=== PATIENT | male | born 1970 | race Caucasian/White ===

== ENCOUNTER 2020-11-21 10:21 | Outpatient (REF) | payer OTHER, SELFPAY ==
[2020-11-21 11:30] LABS: MANUAL DIFF FLAG NO
[2020-11-21 11:44] LABS: Basophils Absolute Auto 0.1 X10*3/uL (0.0-0.2); Basophils Percent Auto 0.8 % (0-2); Eosinophils Absolute Auto 0.6 X10*3/uL (0.0-0.4); Eosinophils Percent Auto 9.1 % (0-4); Hematocrit 43.9 % (42-52); Hemoglobin 14.2 g/dl (14.0-18.0); Imm Gran Abs Auto 0.02 X10*3/uL (0.00-0.03); Imm Gran Pct Auto 0.3 % (0.0-0.4); Lymphocytes Percent Auto 30.8 % (20-40); Mean Corpuscular HGB Conc 32.3 g/dl (31.0-36.0); Mean Corpuscular Hemoglobin 28.3 pg (27.0-33.0); Mean Corpuscular Volume 87.6 fL (80-98); Mean Platelet Volume 10.1 fL (9.4-12.4); Monocytes Absolute Auto 0.6 X10*3/uL (0.1-1.2); Monocytes Percent Auto 8.5 % (2-11); Neutrophils Absolute Auto 3.3 X10*3/uL (2.0-8.3); Neutrophils Percent Auto 50.5 % (45-73); Platelet Count 282 X10*3/uL (160-400); Red Blood Count 5.01 X10*6/uL (4.60-5.80); Red Cell Distribution Width 13.1 % (11.0-16.0); White Blood Count 6.6 X10*3/uL (4.8-10.8)
[2020-11-21 11:55] LABS: Alanine Aminotransferase 21 U/L (0-40); Albumin Level 4.5 g/dL (3.5-5.0); Alkaline Phosphatase 48 U/L (39-117); Anion Gap 11 (12-20); Aspartate Amino Transferase 18 U/L (5-37); Blood Urea Nitrogen 12 mg/dL (9-16); Calcium 9.7 mg/dL (8.4-10.2); Carbon Dioxide 27 mmol/L (22-29); Chloride 106 mmol/L (96-108); Cholesterol 181 mg/dL; Estimated Glomerular Filt Rate > 60; Glucose Random 86 mg/dL (60-115); HDL Cholesterol 51 mg/dL; LDL Cholesterol Calculated 108 mg/dl; Potassium 4.5 mmol/L (3.3-5.1); Sodium 139 mmol/L (135-145); Total Protein 7.5 g/dL (6.5-8.0); Triglycerides 111 mg/dL
== END 2020-11-21 10:22 | disposition home or self-care (01) ==
LOC: HO.LAB 10:21
PROVIDERS: PCP Internal Medicine; Visit Provider Internal Medicine
DX: Z00.00 Encounter for general adult medical examination without abnormal findings (principal); Z13.31 Encounter for screening for depression; J45.32 Mild persistent asthma with status asthmaticus; J30.89 Other allergic rhinitis
CPT/HCPCS: 36415; 80053; 80061; 85025

== ENCOUNTER → 2021-01-16 13:26 | Outpatient (BNVA) | payer OTHER, SELFPAY | PROVIDERS: PCP Internal Medicine; Visit Provider Internal Medicine | DX: R07.2 Precordial pain (principal) | CPT/HCPCS: 93005 ==

== ENCOUNTER → 2021-02-27 08:36 | Outpatient (REF) | payer OTHER, SELFPAY ==
--- NOTE | 2021-02-27 08:40 | CA_ITS ---
Acquisition Time: 2021-02-27 09:06:30 Total Exercise Time: 00:09:00 Test Indications: Chest Pain Medications: Protocol: LEVAR Max HR: 148 BPM 87% of Pred: 170 BPM Max BP: 150/084 mmHG Max Work Load: 10.1 METS Exercise stress test with exercise 9 min of Levar protocol, with mild sob, no chest discomfort, with isolated PAC, with normotensive response to exercise, without EKG changes meeting criteria for ischemia. Test reviewed with Dr Cade. Referred By: Bo Devine Overread By: CHALO BRUMFIELD
--- NOTE | 2021-02-27 08:40 | CA_ITS ---
Transthoracic Echocardiogram Patient (Last, First, Middle): Jose Gonsalez, Gender: Male Date of : 1970 Age: 50 Procedure Date: 02/27/2021 Procedure Type: Transthoracic Echocardiogram Location: OP Height: 175.26 cm Weight: 97.52 kg BSA: 2.13 m2 Heart Rate: bpm BP: 110 / 50 mmHg Nursing Assistant: VIVIANE Steve MD: Bo Devine MD Offset Press Operator Helper: Iain Cade MD Symptoms: R07.2 - Precordial pain Study Quality: Fair ECG Rhythm: Sinus Conclusions: - Essentially normal study Findings Left Ventricle Normal left ventricular size, thickness, and systolic function. The visually estimated ejection fraction is between 60-65%. Spectral Doppler is indicative of a normal filling pattern. Right Ventricle Normal right ventricular cavity size and systolic function. Atria Both atria are normal in size. There is no evidence of interatrial shunt. Aortic Valve The aortic valve structure and function is likely normal. There is no aortic valve stenosis. There is no aortic valve regurgitation. Mitral Valve Normal mitral valve structure and function. There is trace mitral valve regurgitation. There is no mitral valve stenosis. Pulmonic Valve The pulmonic valve is likely normal. Tricuspid Valve Normal tricuspid valve structure. There is trace tricuspid valve regurgitation. Great Vessels All visible segments of the aorta are normal in size. The pulmonary artery was not well visualized. Venous The inferior vena cava is normal in size and collapses greater than 50% with inspiration. Pericardium/Pleural There is no evidence of pericardial effusion. Prior Study Comparison No significant change compared to prior study dated: 09/23/2017. Measurements 2D Linear Measurements IVSd: 0.99 0.6-0.9/0.6-1.0 cm LVIDd: 4.83 3.9-5.3/4.2-5.9 cm LVIDd Index: 2.27 2.4-3.2/2.2-3.1 cm/m2 LVIDs: 3.09 2.0-3.6 cm LVPWd: 0.73 0.7-1.1 cm Ao Root: 3.60 2.1-3.5 cm LA Diam: 3.50 2.7-3.8/3.0-4.0 cm LAIDs Index: 1.64 1.5-2.3 cm/m2 LV Mass: 174.40 67-162/88-224 g LV Mass Index: 81.88 43-95/49-115 g/m2 LVOT Diam: 2.00 3.0+(-)1.3 cm 2D Systolic Function EF 4C: 63.40 >55% EF 2C: 71.60 >55% EF BiP: 65.00 >55% Mitral Valve MV Pk E: 0.87 MV PK A: 0.52 MV Decel Time: 250.00 E/A: 1.70 E'Lateral: 13.40 E'Medial: 10.10 E/E' Med: 8.60 E/E' Lat: 6.50 PHT: 73.00 MVA PHT: 3.01 Decel George: 3.48 Aortic Valve AoV Pk Joe: 1.29 AoV Mn Joe: 0.90 AoV VTI: 0.30 AoV Pk Grad: 7.00 Aov Mn Grad: 4.00 OSVALDO Cont.VTI: 2.86 LVOT LVOT Pk Joe: 1.17 LVOT Mn Joe: 0.81 LVOT VTI: 0.27 LVOT Pk Grad: 5.00 LVOT Mn Grad: 3.00 LVOT Diam: 2.00 LVOT Area: 3.14 Diastolic Function MV Pk E: 0.87 MV Pk A: 0.52 E/A: 1.70 E'Medial: 10.10 E/E' Med: 8.60 E' Laterial: 13.40 E/E' Lat: 6.50 Right Ventricle TAPSE (mm): 2.21 Tricuspid Valve TR Pk Joe: 1.56 TR Pk Grad: 10.00 RA Press: 3.00 RVSP: 13.00 Great Vessels Aorta Ao Root-2D: 3.60 2.0-3.7 cm Ao Asc: 3.30 2.1-3.4 cm Ao Arch: 2.80 Updated in Other Vendor System with Status of Final Iain Cade MD electronically signed on 02/28/2021 12:41:16 PM with status of Final
== END ==
LOC: HO.CARD 08:36
PROVIDERS: PCP Internal Medicine; Visit Provider Internal Medicine
DX: R07.2 Precordial pain (principal)
CPT/HCPCS: 93017; 93306

== ENCOUNTER 2024-04-04 10:49 | Outpatient (REF) | payer OTHER, SELFPAY ==
[2024-04-04 11:21] LABS: MANUAL DIFF FLAG NO
[2024-04-04 12:03] LABS: Basophils Percent Auto 0.2 % (0-2); Eosinophils Absolute Auto 0.2 X10*3/uL (0.0-0.4); Eosinophils Percent Auto 3.6 % (0-4); Hematocrit 41.7 % (42.0-52.0); Hemoglobin 13.8 g/dl (14.0-18.0); Imm Gran Abs Auto 0.03 X10*3/uL (0.00-0.03); Imm Gran Pct Auto 0.6 % (0.0-0.4); Lymphocytes Absolute Auto 1.8 X10*3/uL (1.2-4.9); Mean Corpuscular HGB Conc 33.1 g/dl (31.0-36.0); Mean Corpuscular Hemoglobin 29.1 pg (27.0-33.0); Mean Corpuscular Volume 87.8 fL (80.0-98.0); Mean Platelet Volume 9.8 fL (9.4-12.4); Monocytes Absolute Auto 0.4 X10*3/uL (0.1-1.2); Monocytes Percent Auto 8.2 % (2-11); Neutrophils Absolute Auto 2.7 x10*3/uL (2.0-8.3); Neutrophils Percent Auto 52.4 % (45-73); Platelet Count 254 X10*3/uL (160-400); Red Blood Count 4.75 X10*6/uL (4.60-5.80); Red Cell Distribution Width 13.2 % (11.0-16.0); White Blood Count 5.2 X10*3/uL (4.8-10.8)
[2024-04-04 12:41] LABS: Alanine Aminotransferase 14 U/L (0-40); Albumin Level 4.3 g/dL (3.5-5.0); Alkaline Phosphatase 41 U/L (39-117); Anion Gap 8 (12-20); Aspartate Amino Transferase 16 U/L (5-37); Bilirubin Total 0.6 mg/dL (0.0-1.0); Blood Urea Nitrogen 16 mg/dL (9-16); Calcium 9.9 mg/dL (8.4-10.2); Carbon Dioxide 28 mmol/L (22-29); Chloride 107 mmol/L (96-108); Cholesterol 195 mg/dL (<200); Estimated Glomerular Filt Rate > 60; Glucose Random 90 mg/dL (60-115); HDL Cholesterol 59 mg/dL (>40); LDL Cholesterol Calculated 114 mg/dL (<100); Potassium 4.5 mmol/L (3.3-5.1); Sodium 138 mmol/L (135-145); Total Protein 7.4 g/dL (6.5-8.0); Triglycerides 110 mg/dL (<150)
[2024-04-04 13:02] LABS: Prostate Specific Antigen 0.12 ng/mL (<0.05-4.0)
== END 2024-04-04 10:50 | disposition home or self-care (01) ==
LOC: HO.LAB 10:49
PROVIDERS: PCP Internal Medicine; Visit Provider Internal Medicine
DX: Z00.00 Encounter for general adult medical examination without abnormal findings (principal); M51.16 Intervertebral disc disorders with radiculopathy, lumbar region; Z12.5 Encounter for screening for malignant neoplasm of prostate; Z98.84 Bariatric surgery status
CPT/HCPCS: 36415; 80053; 80061; 84153; 85025

== ENCOUNTER 2024-11-15 07:12 | Day surgery (SDC) | payer OTHER, SELFPAY ==
--- OUTSIDE RECORDS SUMMARY | 2024-10-19 09:07 | XMS_ITS ---
Author Organization [facility] Address [address] [place] [address] Care Team Providers Care Director Advertising Name Role Phone Angelica Gan Primary Care Provider UnavailJacky Morales Unavailable [phone] Allergies No Known Allergies REASON FOR VISIT PATIENT PRESENTS TODAY FOR SCREENING COLON Social History Tobacco Use: Social History Observation Description Date Details (start date - stop date) Never Smoker NA - NA Tobacco Use/Smoking Question Answer Notes Patient is a nonsmoker Alcohol Screen Question Answer Notes Did you have a drink contain ing alcohol in the past year? Yes How often did you have a dri nk containing alcohol in the past year? Monthly or less (1 point) How many drinks did you have on a typical day when you were drinking in the past year? 1 or 2 drinks (0 point) How often did you have 6 or more drinks on one occasion in the past year? Never (0 point) Points 1 Interpretation Negative Section Notes: OCCASIONAL BEER, NONSMOKER Problems Problem Type SNOMED Code ICD Code Onset Dates Problem Status W/U Status Risk Notes Problem Colon cancer screening (891701998) Colon cancer screening (Z12.11) Active confirmed Problem Pre-procedure evaluation check (431786374) Encounter for other preprocedural examination (Z01.818) Active confirmed Vital Signs Blood pressure systolic 111 mm Hg 08/15/19 25 Blood pressure diastolic 11 mm Hg 025 Height 5 ft 9 in in 08/15/2024 Weight 224 lbs 08/15/2024 BMI 33.08 kg/m2 08/15/2024 Encounters Encounter Location Date Provider Diagnosis [facility] [address] [place] [address] 08/15/2024 Jacky Manzaon Colon cancer screeni ng Z12.11 and Encounter for other preprocedural examination Z01.818 Assessments Encounter Date Diagnosis (ICD Code) Assessment Notes Treatment Notes Treatment Clinical Notes Section Notes 08/15/2024 Colon cancer screening (ICD-10 - Z12.11) Overall, Patricia appears quite well. I did recommend a colonoscopy for screening purposes given his age, good clinical appearance, and his last reported colonoscopy being about 10 years ago. We did review the rationale for this regard to colon cancer prevention. Full consent was obtained for this, including risks of bleeding and perforation. The procedure will be done with monitored anesthesia care. Jb was comfortable with this plan. Thank you again for allowing me to participate in Patricia's care. I shall continue to keep you advised of his progress. 08/15/2024 Encounter for other preprocedural examination (ICD-10 - Z01.818) Overall, Patricia appears quite well. I did recommend a colonoscopy for screening purposes given his age, good clinical appearance, and his last reported colonoscopy being about 10 years ago. We did review the rationale for this regard to colon cancer prevention. Full consent was obtained for this, including risks of bleeding and perforation. The procedure will be done with monitored anesthesia care. Jb was comfortable with this plan. Thank you again for allowing me to participate in Felicitas care. I shall continue to keep you advised of his progress. Plan Of Treatment Future Test Test Name Order Date COLONOSCOPY 08/15/2024 Next Appt Details Follow Up: prn, Reason: Provider Name:Jacky Manzano , 11/15/2024 11:40:00 AM, [address] [place] [address], [id number], Progress Notes * DEBBIE MOORESDOB:1970 ( 54 yo M)Acc No.[id number]:08/15/2024 Progress Notes Patient:?PATRICIA MOORE Provider:?Jacky Manzano MD :1970???Age:54 Y???Sex:Male Marcelino e:08/15/2024 Address:[address] [place] [address] [id number] Pcp:Angelica Gan Subjective: * Chief Complaints: * ???PATIENT PRESENTS TODAY FO R SCREENING COLON * HPI: ???incontinence:? I saw Patricia in the office today for evaluation of colorectal cancer screening. ?As you know, Patricia is a 54-year-old male who presently feels well. He enjoys a good appetite and denies any significant heartburn or dysphagia. He denies any abdominal pain, jaundice, nor any unintentional weight loss. He reports his bowel movements have been regular and without any signs of bleeding. He denies any known family history of colon cancer. ?He describes a possible colonoscopy in his mid-40s that he thinks was negative, although is not very clear on the details. ?In March of 2024 he had a normal liver profile and CBC. * ROS:?General/Constitutional:?Change in appetite?denies.?Chills?denies.?Fatigue?denies.?Ophthalmologic:?Comments?all negative.?ENT:?Comments?all negative.?Respiratory:?hemoptysis?denies.?Cough?denies.?Cardiovascular:?Chest pain?denies.?Orthopnea?denies.?Gastrointestinal:?Comments?See HPI for details.?Genitourinary:?Hematuria?denies.?Dysuria?denies.?Musculoskeletal:?Painful joints?denies.?Weakness?denies.?Skin:?Itching?denies.?Rash?denies.?Neurologic:?Headache?denies.?Seizures?denies.?Psychiatric:?Comments?all negative.? * Medical History:? * Surgical History:?Cholecyste ctomy * Hospitalization/Major Diagno stic Procedure:?No Hospitalization History. * Family History:?Father: kristyn bonilla?Mother: alive.? NO KNOWN COLON CA. * Social History:?Tobacco Use:?Tobacco Use/Smoking?Patient is a?nonsmoker.?Drugs/Alcohol:?Alcohol Screen?Did you have a drink containing alcohol in the past year??Yes,?How often did you have a drink containing alcohol in the past year??Monthly or less (1 point), How many drinks did you have on a typical day when you were drinking in the past year??1 or 2 drinks (0 point),?How often did you have 6 or more drinks on one occasion in the past year??Never (0 point),?Points?1,?Interpretation?Negative.?Miscellaneous:?Marital status: . 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 * Medications:? * Allergies:?N.K.D.A.yes[Aller gies Verified] Objective: * Vitals:?Wt:224 lbs, Ht: 5 ft 9 in, BMI:33.08 Index, BP:111/11 mm Hg, Ht-cm: 175.26, Wt-k.6. * Examination: ???General Examination: ?GENERAL APPEARANCE:?pleasant, well nourished, well developed, in no acute distress.?EYES:?sclera non-icteric.?ORAL CAVITY:?mucosa moist.?NECK/THYROID:?no cervical lymphadenopathy, neck supple.?SKIN:?nonjaundiced, no spider angiomata.?HEART:?S1, S2 normal.?LUNGS:?clear to auscultation bilaterally.?ABDOMEN:?normal bowel sounds, no guarding or rigidity, no guarding or rigidity, no masses palpable, soft, nontender, nondistended.?EXTREMITIES:?no edema.?NEUROLOGIC:?alert and oriented.? Assessment: * Assessment: 1.?Encounter for other prepr ocedural examination - Z01.818 (Primary)?2.?Colon cancer screening - Z12.11? Overall, Patricia appears quite well. I did recommend a colonoscopy for screening purposes given his age, good clinical appearance, and his last reported colonoscopy being about 10 years ago. We did review the rationale for this regard to colon cancer prevention. Full consent was obtained for this, including risks of bleeding and perforation. The procedure will be done with monitored anesthesia care. Jb was comfortable with this plan. Thank you again for allowing me to participate in Patricia's care. I shall continue to keep you advised of his progress. Plan: * Treatment: * Procedure Codes:?3017F COLOR ECTAL CA SCREEN DOC [id number] TOBACCO [id number] BP SCR NOT PRFRM REC REASON NOS * Preventive Medicine:? ??Counseling:?Care goal follow-up plan:?Above Normal BMI Follow-up?Giving encouragement to exercise.? * Follow Up:?prn * * Sign off status: Completed true * Provider:?Jacky Manzano MD Date:? 025 Generated for Amy de leon/Sandeep/Nancyitting on:?10/19/2024 09:07 AM EDT History and Physical Notes * HPI (History of Present Illness) Category Sub-Category Detail Notes Category Not es incontinence I saw Patricia in the office today for evaluation of colorectal cancer screening. As you know, Patricia is a 54-year-old male who presently feels well. He enjoys a good appetite and denies any significant heartburn or dysphagia. He denies any abdominal pain, jaundice, nor any unintentional weight loss. He reports his bowel movements have been regular and without any signs of bleeding. He denies any known family history of colon cancer. He describes a possible colonoscopy in his mid-40s that he thinks was negative, although is not very clear on the details. In March of 2024 he had a normal liver profile and CBC. Examination Category Sub-Category Detail Notes Category Not es General Examination GENERAL APPEARANCE: pleasant , well nourished, well developed, in no acute distress HEAD: EYES: sclera non-icteric EARS: NOSE: THROAT: NECK/THYROID: no cervical lymphade nopathy, neck supple HEART: S1, S2 normal CHEST: LUNGS: clear to auscultatio n bilaterally ABDOMEN: normal bowel sounds, no guarding or rigidity, no guarding or rigidity, no masses palpable, soft, nontender, nondistended NEUROLOGIC: alert and oriented SKIN: nonjaundiced, no spi mali angiomata EXTREMITIES: no edema PERIPHERAL PULSES: BACK: BREASTS: MUSCULOSKELETAL: MALE GENITOURINARY: LYMPH NODES: RECTAL EXAM: FEMALE GENITOURINARY: ORAL CAVITY: mucosa moist
--- OUTSIDE RECORDS SUMMARY | 2024-10-19 09:07 | XMS_ITS | Patient Health Record ---
Author Organization [facility] Address [address] [place] [address] Care Team Providers Care Network Infrastructure Architect Name Role Phone MerylAngelica alcantara Primary Care Provider UnavailJacky Morales Unavailable [phone] Allergies No Known Allergies Reason For Referral No Information Social History Tobacco Use: Social History Observation [...] Status Risk Notes Problem Colon cancer screening (109741752) Colon cancer screening (Z12.11) Active confirmed Problem Pre-procedure evaluation check (823884092) Encounter for other preprocedural examination (Z01.818) Active confirmed Vital Signs Blood pressure diastolic 11 mm Hg 08/15/2024 Height 5 ft 9 in in 08/15/2024 Blood pressure systolic 111 mm Hg 08/15/2024 Weight 224 lbs 08/15/2024 BMI 33.08 kg/m2 08/15/2024 Encounters Encounter Location Date Provider Diagnosis [facility] [address] [place] [address] 08/15/2024 Jacky Manzano Colon cancer screeni ng Z12.11 and Encounter [...] Order Date COLONOSCOPY 08/15/2024 Next Appt Details Provider Name:Jacky Manzano , 11/15/2024 11:40:00 AM, [address] , [place], [place], [id number], Insurance Providers Payer Name Payer Address Payer Phone Subscriber Number Group Number Insured Name Patient Relationship to Insured Coverage Start Date Coverage End Date [facility] [address] [place] [phone] [id number] PATRICIA MOORE Self - patient is the insured Medical (General) History Medical History History ICD Code Denies NV,DM,CVA,Lung disease,renal dise ase Colonoscopy in mid-40's--negative Surgical History Surgery Date(Month/Year) Cholecystectomy
[2024-11-13 13:35] VITALS: BMI 33.1
--- NOTE | 2024-11-14 08:39 | P.CONAN_ITS ---
Documented by User: Maria R Samuels NP 11/14/24 08:40 HPI - Anesthesia Eval Consult details Narrative: 54yo M for Colonoscopy PMFSH Active Problems Active Problems: All Active Problems Precordial chest pain (Acute) Past Medical History Medical History Chest pain Family History Family History Father No problems noted. Mother No problems noted. Surgical History Surgical History H/O colonoscopy History of cholecystectomy Social History Social History Household Members: Spouse Alcohol intake: current Alcohol intake frequency: holidays/special occasions only Patient Tobacco Use Status: Never used Tobacco Meds Allergies Allergy/AdvReac Type Severity Reaction Status Date / Time No Known Allergies Allergy Verified 01/16/21 13:40 [No Known Allergies*] Home Medications ?Medication ?Instructions ?Recorded ?Confirmed ?Last Taken ?Type albuterol 1 puff inhalation Q4-6H PRN asthma 11/15/24 11/15/24 Unknown History Exam Height,Weight and Vital Signs: Height 5 ft 9 in Weight 101.605 kg Assessment and Plan Assessment Anesthesia Assessment: Chart Reviewed Documented by User: Ambika Michelle MD 11/15/24 10:45 [facility] Active Problems Active Problems: All Active Problems Precordial chest pain (Acute) Asthma. Inhaler prn Past Medical History Medical History Chest pain Family History Family History Father No problems noted. Mother No problems noted. Family history of problems with anesthesia: No Surgical History Surgical History H/O colonoscopy History of cholecystectomy History of Problems with Anesthesia: No Social History Social History Household Members: Spouse Alcohol intake: current Alcohol intake frequency: holidays/special occasions only Patient Tobacco Use Status: Never used Tobacco Meds Allergies Allergy/AdvReac Type Severity Reaction Status Date / Time No Known Allergies Allergy Verified 01/16/21 13:40 [No Known Allergies*] Home Medications ?Medication ?Instructions ?Recorded ?Confirmed ?Last Taken ?Type albuterol 1 puff inhalation Q4-6H PRN asthma 11/15/24 11/15/24 Unknown History Exam Height,Weight and Vital Signs: Height 5 ft 9 in Weight 101.605 kg Vital Signs Temp Pulse Resp BP Pulse Ox O2 Del Method 11/15/24 08:06 98.3 F 70 16 99/60 96 Room Air Airway Mallampati Class: II TM Dist: >3cm Neck ROM: Full Loose/Missing/Broken Teeth: Yes (Missing some molars. Denies broken or loose teeth) Heart: RRR Lungs: CTAB Assessment and Plan Assessment Anesthesia Assessment: Anesthesia Plan Discussed and Chart Reviewed Final Anesthetic Review Family History of Problems with Anesthesia: No History of Problems with Anesthesia: No NPO: Yes ASA Class: II Final Preanesthetic Review: No Changes in Pt Med Stat, Meds/Allgs Chart Reviewed, Consent Obtained/Reviewed and Anes Risks/Benef Reviewed Patient Risk: Intermediate Procedure Risk: Low Assessment/Block/Sedation in SS: Assess/Block/Sedation-SS Anesthetic Plan Anesthetic Plan: TIVA Disposition: Standard PACU
[2024-11-15 08:06] VITALS: BP 99/60; PULSE 70; RESP 16; TEMP 36.8; O2SAT 96
[2024-11-15 08:15] VITALS: BMI 32.0
[2024-11-15] MEDS: Lactated Ringers 1,000 ML 100 ML IVCONT (08:17)
[2024-11-15] MEDS: Albuterol Sulfate (0.083%) 2.5 MG/3 ML VIAL.NEB INHALE (08:25)
[2024-11-15 08:27] VITALS: PULSE 62; RESP 18; O2SAT 97
[2024-11-15 09:45] VITALS: BP 104/62; PULSE 65; RESP 18; TEMP 36.2; O2SAT 96
--- NOTE | 2024-11-15 09:46 | P.BOP_ITS ---
Brief Operative Note Date of Service: 11/15/24 Pre-op diagnosis: Screening Post-op diagnosis: other (Diverticulosis) Procedure: Colonoscopy to the cecum Surgeon: Jacky Manzano MD Anesthesia: MAC Was an Optical Fabrication Technician used for this Procedure?: No Estimated blood loss (mL): 0 Pathology: none sent Condition: stable
[2024-11-15 10:00] VITALS: BP 111/66; PULSE 59; RESP 16; TEMP 36.9; O2SAT 99
--- NOTE | 2024-11-15 10:18 | OP_ITS ---
DATE OF SERVICE: 11/15/2024 SURGEON: Jacky Manzano MD INDICATIONS: The patient presents for evaluation of colorectal cancer screening. Full consent was obtained from him for this, including risks of bleeding and perforation. PREOPERATIVE DIAGNOSIS: Colorectal cancer screening. POSTOPERATIVE DIAGNOSIS: PROCEDURE PERFORMED: Colonoscopy to the cecum. ESTIMATED BLOOD LOSS: COMPLICATIONS: ANESTHESIA: Medication use; monitored anesthesia care. ASSISTANTS: SPECIMENS: POSTOPERATIVE DIAGNOSES: Colorectal cancer screening, sigmoid diverticulosis, and small internal hemorrhoids. DESCRIPTION OF PROCEDURE: The patient was placed in the left lateral decubitus position. The digital rectal exam revealed no abnormalities. The Olympus video pediatric colonoscope was entered into the rectum and advanced easily to the cecum. Once in the cecum, I did identify normal-appearing cecal pouch with appendiceal orifice and a normal-appearing ileocecal valve. The entire cecum and ileocecal valve appeared normal. The scope was slowly withdrawn assessing all mucosal surfaces carefully. Preparation was excellent. I did not visualize any sign of polyps, colitis, nor angiodysplasia. There was a mild amount of sigmoid diverticulosis. In the rectum, scope was retroflexed visualizing internal hemorrhoids, but no other pathology. The rectal mucosa appeared normal. Scope was straightened and withdrawn from the patient. He tolerated the procedure well and was returned to recovery area in stable condition. IMPRESSION: 1. Mild diverticulosis. 2. Internal hemorrhoids. PLAN: Given the negative exam and negative family history, I would recommend a followup coloscopy in 10 years for further screening. He will otherwise see me on a p.r.n. basis. Jacky Manzano MD RMW/MODL / [id number]
== END 2024-11-15 10:37 | disposition home or self-care (01) ==
PROVIDERS: PCP Internal Medicine; Visit Provider Internal Medicine
PROC: 0DJD8ZZ Inspection of Lower Intestinal Tract, Via Natural or Artificial Opening Endoscopic (ICD-10-PCS; CPT 45378; principal; 2024-11-15 08:30)
DX: Z12.11 Encounter for screening for malignant neoplasm of colon (principal); K57.30 Diverticulosis of large intestine without perforation or abscess without bleeding; K64.8 Other hemorrhoids; J45.909 Unspecified asthma, uncomplicated; Z79.899 Other long term (current) drug therapy
CPT/HCPCS: 45378; 94640; J2003; J2704

== ENCOUNTER 2025-06-23 10:34 | Outpatient (REF) | payer OTHER, SELFPAY ==
--- OUTSIDE RECORDS SUMMARY | 2025-06-23 10:38 | XMS_ITS | Clinical Summary ---
Author Organization [facility] Address [address] [place] [address] Phone Care Team Providers Care Life Sciences Manager Name Role Phone Physician, Pcp Unknown Primary Care Provider Victorina vailable Allergies No known active allergies Encounters Date Type Department Care Team Description 04/18/2025 8:11 PM EDT - 04/18/2025 9:[address] [facility] [address] [place] [address] Chest pain, unspecified type (Primary Dx) Discharge Disposition: Left Against Medical Advice from Last 3 Months Medical History Medical History Date Comments Asthma Allergies Social History Tobacco Use Types Packs/Day Years Used Date Smoking Tobacco: Never Assessed Sex and Gender Information Value Date Recorded Sex Assigned at Not on file Legal Sex Male 2:28 AM EST Gender Identity Not on file Sexual Orientation Not on file Obstetrics History Last Filed Vital Signs Vital Sign Reading Time Taken Comments Blood Pressure 117/79 04/18/2025 6:07 PM EDT Pulse 64 04/18/2025 6:07 PM EDT Temperature 36.7 C (98.1 F) 04/18/2025 6:07 PM EDT Respiratory Rate 18 04/18/2025 6:07 PM EDT Oxygen Saturation 98% 04/18/2025 6:07 PM EDT Inhaled Oxygen Concentration - - Weight - - Height - - Body Mass Index - - Plan of Treatment Health Maintenance Due Date Last Done Comments Hepatitis B Vaccines (1 of 3 - 19+ 3-dose series) 1989 Pneumococcal Vaccine: 50+ Years (2 of 2 - PCV) 02/29/2020 07/18/2015 Zoster Vaccines (1 of 2) 02/29/2020 Depression Screening 07/19/2024 COVID-19 Vaccine ( season) 2025 08/28/2021, 11/20/2020, 11/06/2020, Additional history exists Influenza Vaccine (#1) 2025 07/18/2015 Cholesterol Screening (Lipid Panel) 04/18/2025 HIV Screening 04/18/2025 Hepatitis C Screening 04/18/2025 Social Influencers of Health Screening 04/18/2025 DTaP,Tdap,and Td Vaccines (2 - Td or Tdap) 02/23/2030 02/24/2020 Colorectal Cancer Screening: Colonoscopy 11/15/2034 11/15/2024 RSV Immunization Adult Patients (1 - 1-dose 75+ series) 2045 HIB Vaccines Aged Out No longer eligi ble based on patient's age to complete this topic HPV Vaccines Aged Out No longer eligi ble based on patient's age to complete this topic Hepatitis A Vaccines Aged Out No long er eligible based on patient's age to complete this topic IPV Vaccines Aged Out No longer eligi ble based on patient's age to complete this topic MMR Vaccines Aged Out No longer eligi ble based on patient's age to complete this topic Meningococcal ACWY Vaccine Aged Out N o longer eligible based on patient's age to complete this topic Meningococcal B Vaccine Aged Out No l onger eligible based on patient's age to complete this topic RSV Immunization Patients Under 20 months Aged Out No longer eligible based on patient's age to complete this topic Varicella Vaccines Aged Out No longer eligible based on patient's age to complete this topic Procedures Procedure Name Priority Date/Time Associated Diagnosis Comments ECG ANNOTATED 04/19/2025 XR CHEST 2 VIEWS STAT 04/18/2025 6:30 PM EDT CBC WITH AUTO DIFFERENTIAL STAT 04/18/2025 6:24 PM EDT B-TYPE NATRIURETIC PEPTIDE STAT 04/18/2025 6:24 PM EDT MAGNESIUM STAT 04/18/2025 6:24 PM EDT LIPASE STAT 04/18/2025 6:24 PM EDT COMPREHENSIVE METABOLIC PANEL STAT 04/18/2025 6:24 PM EDT CBC AND DIFFERENTIAL STAT 04/18/2025 6:24 PM EDT TROPONIN I HIGH SENSITIVITY Timed 04/18/2025 6:24 PM EDT ECG 12-LEAD STAT 04/18/2025 6:00 PM EDT from Last 3 Months Results * ECG-Annotated (04/19/2025) us Provider Onbase MD ECG ORDERABLES Final Result * XR Chest 2 Views (04/18/2025 6:30 PM EDT) Anatomical Region Laterality Modality Body Radiographic Maki ging 04/19/2025 8:04 AM EDT Impressions 04/19/2025 8:08 AM EDT No acute pulmonary disease. Code 74670 CT Teleradiology -------- FINAL REPORT -------- Dictated By: Joby Colbert Dictated Date: 04/19/2025 08:04 ET Assigned Physician: Joby Colbert Reviewed and Electronically Signed By: Joby Colbert Signed Date: 04/19/2025 08:08 ET Workstation ID: [id number] Transcribed By: Self Edit Transcribed Date: 04/19/2025 08:04 ET Narrative 04/19/2025 8:08 AM EDT HISTORY: The patient is a 55-year-old male with chest pain. FINDINGS: PA and lateral radiographs of the chest, without previous for comparison, demonstrate normal appearance of the bony structures. The cardiac and mediastinal contours are within normal limits. The lungs and costophrenic angles are clear. Cholecystectomy clips are noted. Procedure Note Joby Colbert MD - 04/19/2025 HISTORY: The patient is a 55-year-old male with chest pain. FINDINGS: PA and lateral radiographs of the chest, without previous forcomparison, demonstrate normal appearance of the bony structures. Thecardiac and mediastinal contours are within normal limits. The lungs andcostophrenic angles are clear. Cholecystectomy clips are noted. IMPRESSION: No acute pulmonary disease. Code 26325 CT Teleradiology -------- FINAL REPORT -------- Dictated By: Joby Colbert Dictated Date: 04/19/2025 08:04 ET Assigned Physician: Joby Colbert Reviewed and Electronically Signed By: Joby Colbert Signed Date: 04/19/2025 08:08 ET Workstation ID: [id number] Transcribed By: Self Edit Transcribed Date: 04/19/2025 08:04 ET Tong Ramirez MD IMG XR PROCEDURES Final Result * Troponin I high sensitivity (04/18/2025 6:24 PM EDT) [facility] High Sensitivity Troponin I <3 <=79 ng/L LAB CHEMISTRY METHOD 04/18/2025 7:06 PM EDT [facility] Blood Venous blood specimen / Unknown Venipuncture / Unknown 04/18/2025 6:24 PM EDT 04/18/2025 6:36 PM EDT Narrative [facility] - 04/18/2025 7:06 PM EDT High levels of biotin in samples may falsely decrease hsTroponin values. Use caution when interpreting hsTroponin results in patients taking biotin who exhibit renal impairment (eGFR <60) or in patients taking more than 20 mg/day of biotin. Tong Ramirez MD LAB BLOOD ORDERABLES Final Resu lt [facility] [address] [place] [address], * (ABNORMAL) CBC auto differential (04/18/2025 6:24 PM EDT) [facility] WBC 6.9 4.8 - 10.8 K/[facility] LAB HEMETOLOGY METHOD 04/18/2025 6:40 PM EDT [facility] RBC 4.50 4.50 - 5.50 M/mcL LAB HEMETOLOGY METHOD 04/18/2025 6:40 PM EDT [facility] Hemoglobin 13.0(L) 13.5 - 17.5 g/dL LAB HEMETOLOGY METHOD 04/18/2025 6:40 PM EDT [facility] Hematocrit 39.4(L) 42.0 - 54.0 % LAB HEMETOLOGY METHOD 04/18/2025 6:40 PM EDT [facility] MCV 88.1 79.0 - 98.0 FL LAB HEMETOLOGY METHOD 04/18/2025 6:40 PM EDT [facility] MCH 29.1 27.0 - 32.0 pcg LAB HEMETOLOGY METHOD 04/18/2025 6:40 PM EDT [facility] MCHC 33.0 32.0 - 37.0 g/dL LAB HEMETOLOGY METHOD 04/18/2025 6:40 PM [facility] RDW 12.9 11.0 - 15.0 % LAB HEMETOLOGY METHOD 04/18/2025 6:40 PM EDT [facility] Platelets 287 130 - 400 K/mcL LAB HEMETOLOGY METHOD 04/18/2025 6:40 PM EDT [facility] MPV 9.6 7.0 - 11.0 FL LAB HEMETOLOGY METHOD 04/18/2025 6:40 PM [facility] NRBC 0.0 <1.0 % LAB HEMETOLOGY METHOD 04/18/2025 6:40 PM EDT [facility] NRBC Absolute 0.00 <0.10 K/mcL LAB HEMETOLOGY METHOD 04/18/2025 6:40 PM EDT [facility] Neutrophils Relative 58.8 % LAB HEMETOLOGY METHOD 04/18/2025 6:40 PM EDT [facility] Lymphocytes Relative 30.0 % LAB HEMETOLOGY METHOD 04/18/2025 6:40 PM EDT [facility] Monocytes Relative 8.3 % LAB HEMETOLOGY METHOD 04/18/2025 6:40 PM EDT [facility] Eosinophils Relative 2.3 % LAB HEMETOLOGY METHOD 04/18/2025 6:40 PM EDT [facility] Basophils Relative 0.3 % LAB HEMETOLOGY METHOD 04/18/2025 6:40 PM EDT [facility] Immature Granulocytes Relative 0.3 % LAB HEMETOLOGY METHOD 04/18/2025 6:40 PM EDT [facility] Neutrophils Absolute 4.04 1.50 - 7.00 K/mcL LAB HEMETOLOGY METHOD 04/18/2025 6:40 PM EDT [facility] Lymphocytes Absolute 2.06 1.00 - 5.00 K/mcL LAB HEMETOLOGY METHOD 04/18/2025 6:40 PM EDT [facility] Monocytes Absolute 0.57 0.20 - 1.00 K/mcL LAB HEMETOLOGY METHOD 04/18/2025 6:40 PM EDT [facility] Eosinophils Absolute 0.16 0.00 - 0.50 K/mcL LAB HEMETOLOGY METHOD 04/18/2025 6:40 PM EDT [facility] Basophils Absolute 0.02 0.00 - 0.20 K/mcL LAB HEMETOLOGY METHOD 04/18/2025 6:40 PM EDT [facility] Immature Granulocytes Absolute 0.02 0.00 - 0.03 K/mcL LAB HEMETOLOGY METHOD 04/18/2025 6:40 PM EDT [facility] Blood Venous blood specimen / Unknown Venipuncture / Unknown 04/18/2025 6:24 PM EDT 04/18/2025 6:36 PM EDT us Tong Ramirez MD LAB BLOOD ORDERABLES Final Resu lt [facility] [address] [place] [address], [place] [phone] * B-type natriuretic peptide (04/18/2025 6:24 PM EDT) Pathologist [facility] BNP 9 <=100 pcg/mL LAB CHEMISTRY METHOD 04/18/2025 7:29 PM EDT [facility] Blood Venous blood specimen / Unknown Venipuncture / Unknown 04/18/2025 6:24 PM EDT 04/18/2025 6:36 PM EDT Tong Ramirez MD LAB BLOOD ORDERABLES Final Resu lt [facility] [address] [place] [address], [place] [phone] * Magnesium (04/18/2025 6:24 PM EDT) [facility] Magnesium 2.0 1.9 - 2.6 mg/dL LAB CHEMISTRY METHOD 04/18/2025 7:04 PM EDT [facility] Blood Venous blood specimen / Unknown Venipuncture / Unknown 04/18/2025 6:24 PM EDT 04/18/2025 6:36 PM EDT Tong Ramirez MD LAB BLOOD ORDERABLES Final Resu lt [facility] [address] [place] [address], [place] [phone] * (ABNORMAL) Lipase (04/18/2025 6:24 PM EDT) Pathologist [facility] Lipase 98(H) 13 - 75 unit/L LAB CHEMISTRY METHOD 04/18/2025 7:04 PM EDT [facility] Blood Venous blood specimen / Unknown Venipuncture / Unknown 04/18/2025 6:24 PM EDT 04/18/2025 6:36 PM EDT us Tong Ramirez MD LAB BLOOD ORDERABLES Final Resu lt [facility] [address] [place] [address], [place] [phone] * (ABNORMAL) Comprehensive metabolic panel (04/18/2025 6:24 PM EDT) Sodium 139 133 - 145 mmol/L LAB CHEMISTRY METHOD 04/18[facility]2025 7:[facility] Potassium 4.0 3.5 - 5.5 mmol/L LAB CHEMISTRY METHOD 04/18/2025 7:04 PM [facility] Chloride 106 96 - 110 mmol/L LAB CHEMISTRY METHOD 04/18/2025 7:04 PM [facility] CO2 27 21 - 32 mmol/L LAB CHEMISTRY METHOD 04/18/2025 7:04 PM [facility] Anion Gap 6 3 - 11 LAB CHEMISTRY METHOD 04/18/2025 7:04 PM [facility] Glucose 105(H) 70 - 100 mg/dL LAB CHEMISTRY METHOD 04/18/2025 7:04 PM [facility] BUN 18 5 - 25 mg/dL LAB CHEMISTRY METHOD 04/18/2025 7:04 PM [facility] Creatinine 1.19 0.70 - 1.30 mg/dL LAB CHEMISTRY METHOD 04/18/2025 7:04 PM [facility] eGFR 72 >=60 mL/min/1. 73m2 LAB CHEMISTRY METHOD 04/18/2025 7:04 PM [facility] Comment:Calculation based on the Chronic Kidney Disease Epidemiology Collaboration (CKD-EPI) equation refit without adjustment for race. BUN/Creatinine Ratio 15.1 LAB CHEMISTRY METHOD 04/18/2025 7:04 PM [facility] Calcium 9.2 8.5 - 10.5 mg/dL LAB CHEMISTRY METHOD 04/18/2025 7:04 PM EDT [facility] AST (SGOT) 14 10 - 42 unit/L LAB CHEMISTRY METHOD 04/18/2025 7:04 PM EDT [facility] ALT (SGPT) 21 10 - 60 unit/L LAB CHEMISTRY METHOD 04/18/2025 7:04 PM EDT [facility] Alkaline Phosphatase 49 42 - 121 unit/L LAB CHEMISTRY METHOD 04/18/2025 7:04 PM EDT [facility] Total Protein 6.9 6.0 - 8.0 g/dL LAB CHEMISTRY METHOD 04/18/2025 7:04 PM EDT [facility] Albumin 3.9 3.2 - 5.0 g/dL LAB CHEMISTRY METHOD 04/18/2025 7:04 PM EDT [facility] Total Bilirubin 0.4 0.0 - 1.4 mg/dL LAB CHEMISTRY METHOD 04/18/2025 7:04 PM EDT [facility] Blood Venous blood specimen / Unknown Venipuncture / Unknown 04/18/2025 6:24 PM EDT 04/18/2025 6:36 PM EDT us Tong Ramirez MD LAB BLOOD ORDERABLES Final Resu lt [facility] [address] [place] [address], * ECG 12 lead (04/18/2025 6:00 PM EDT) Ventricular Rate ECG 73 BPM GEMUSE Atrial Rate 73 BPM GEMUSE P-R Interval 164 ms GEMUSE QRS Duration 86 ms GEMUSE Q-T Interval 398 ms GEMUSE QTc 438 ms GEMUSE P Wave [place] 57 degrees GEMUSE R [place] 64 degrees GEMUSE T [place] 53 degrees GEMUSE ECG Interpretation Normal sinus rhythm Nonspecific T wave abnormality Abnormal ECG No previous ECGs available Confirmed by RENEE GIORDANO ([id number]) on 04/19/2025 5:47:39 PM GEMUSE 04/18/2025 6:00 PM EDT 04/19/2025 5:47 PM EDT us Tong Ramirez MD ECG ORDERABLES Final Result GEMUSE from Last 3 Months Insurance [facility] Care Teams Life Sciences Manager Relationship Specialty Start Date End Date Physician, Pcp Unknown PCP - General 04/18/25
[2025-06-23 12:29] LABS: Alanine Aminotransferase 14 U/L (0-40); Albumin Level 4.6 g/dL (3.5-5.0); Alkaline Phosphatase 48 U/L (39-117); Anion Gap 9 (12-20); Aspartate Amino Transferase 20 U/L (5-37); Blood Urea Nitrogen 14 mg/dL (9-16); Calcium 9.5 mg/dL (8.4-10.2); Carbon Dioxide 28 mmol/L (22-29); Chloride 108 mmol/L (96-108); Cholesterol 170 mg/dL (<200); Estimated Glomerular Filt Rate > 60; HDL Cholesterol 67 mg/dL (>40); Potassium 4.3 mmol/L (3.3-5.1); Sodium 141 mmol/L (135-145); Total Protein 7.3 g/dL (6.5-8.0); Triglycerides 71 mg/dL (<150)
[2025-06-23 12:45] LABS: Thyroid Stimulating Hormone 1.19 uIU/mL (0.32-4.0)
[2025-06-23 13:20] LABS: Prostate Specific Antigen 0.15 ng/mL (<0.05-4.0)
== END 2025-06-23 10:35 | disposition home or self-care (01) ==
LOC: HO.LAB 10:34
PROVIDERS: PCP Internal Medicine; Visit Provider Internal Medicine
DX: R00.2 Palpitations (principal); F32.9 Major depressive disorder, single episode, unspecified; J45.909 Unspecified asthma, uncomplicated; Z13.6 Encounter for screening for cardiovascular disorders; Z12.5 Encounter for screening for malignant neoplasm of prostate
CPT/HCPCS: 36415; 80053; 80061; 84153; 84443